=== PATIENT | male | born 1960 | race Caucasian/White ===

== ENCOUNTER 2018-03-05 21:46 | Inpatient (IN) | payer OTHER, MEDICAID ==
[2018-03-05 22:25] LABS: ADD MAN DIFF? NO
[2018-03-05 22:31] LABS: BASOPHILS % 0.9 % (0.0-2.0); EOSINOPHILS # 0.1 10^3/ul (0.0-0.5); HEMATOCRIT 24.8 % (42.0-52.0); HEMOGLOBIN 7.8 g/dl (14.0-18.0); LYMPHOCYTES # 1.5 10^3/ul (0.8-2.9); LYMPHOCYTES % 33.6 % (15.0-51.0); MEAN CORPUSCULAR HEMOGLOBIN 29.2 pg (29.0-33.0); MEAN CORPUSCULAR HGB CONC 31.5 g/dl (32.0-37.0); MEAN CORPUSCULAR VOLUME 92.9 fl (82.0-101.0); MEAN PLATELET VOLUME 10.1 fl (7.4-10.4); MONOCYTE # 0.5 10^3/ul (0.3-0.9); MONOCYTES % 11.4 % (0.0-11.0); NEUTROPHIL # 2.2 10^3/ul (1.6-7.5); NEUTROPHILS % 50.9 % (39.0-77.0); PLATELET COUNT 134 10^3/UL (140-415); RED BLOOD COUNT 2.67 10^6/ul (4.70-6.10); RED CELL DISTRIBUTION WIDTH 15.3 % (11.5-14.5)
[2018-03-05 22:31] LABS: WHITE BLOOD COUNT 4.4 10^3/ul (4.8-10.8)
[2018-03-05 22:48] LABS: ALANINE AMINOTRANSFERASE 26 IU/L (13-69); ALBUMIN 4.3 g/dl (3.3-4.9); ALBUMIN/GLOBULIN RATIO 1.65; ALKALINE PHOSPHATASE 168 IU/L (42-121); ANION GAP 13 (5-13); ASPARTATE AMINO TRANSFERASE 29 IU/L (15-46); BILIRUBIN,INDIRECT 0.2 mg/dl (0-1.1); BILIRUBIN,TOTAL 0.2 mg/dl (0.2-1.3); BLOOD UREA NITROGEN 77 mg/dl (7-20); CALCIUM 9.4 mg/dl (8.4-10.2); CARBON DIOXIDE 28 mmol/L (21-31); CHLORIDE 95 mmol/L (97-110); CREATININE 8.63 mg/dl (0.61-1.24); Estimated GFR 6 mL/min (>60); GLUCOSE 105 mg/dl (70-220); LIPASE 157 U/L (23-300); POTASSIUM 4.6 mmol/L (3.5-5.1); SODIUM 136 mmol/L (135-144); TOTAL PROTEIN 6.9 g/dl (6.1-8.1)
[2018-03-05 22:51] LABS: INR 0.93; PROTIME 12.5 Sec (11.9-14.9)
[2018-03-05 22:52] LABS: PARTIAL THROMBOPLASTIN TIME 39.5 Sec (23.0-35.0)
[2018-03-05] MEDS ORDERED: ACETAMINOPHEN 325 MG TAB PO (23:00)
[2018-03-05] MEDS ORDERED: DOCUSATE SODIUM 100 MG CAP PO (23:00)
[2018-03-05] MEDS ORDERED: NACL 0.9% 3 ML SYG IV (23:00)
[2018-03-05] MEDS ORDERED: BISACODYL (EC) 5 MG TAB PO (23:00)
[2018-03-05 23:25] LABS: C-REACTIVE PROTEIN 1.4 mg/dl (0.0-0.9)
[2018-03-06 00:25] LABS: ERYTHROCYTE SEDIMENTATION RATE 22 mm/Hr (0-20)
[2018-03-06] MEDS ORDERED: VANCOMYCIN IV PER PHARMACY XX (02:00)
[2018-03-06] MEDS: CEFTRIAXONE 1 GM/50 ML (PMX) 50 ML IVPB (02:25)
[2018-03-06] MEDS: VANCOMYCIN 1.5 GM in SOD CHLORIDE 0.9% 250 ML IVPB (03:41)
[2018-03-06 05:46] LABS: ADD MAN DIFF? NO
[2018-03-06 05:53] LABS: BASOPHILS % 0.3 % (0.0-2.0); EOSINOPHILS % 0.3 % (0.0-7.0); HEMATOCRIT 23.1 % (42.0-52.0); HEMOGLOBIN 7.4 g/dl (14.0-18.0); LYMPHOCYTES # 0.8 10^3/ul (0.8-2.9); LYMPHOCYTES % 21.7 % (15.0-51.0); MEAN CORPUSCULAR HEMOGLOBIN 29.1 pg (29.0-33.0); MEAN CORPUSCULAR VOLUME 90.9 fl (82.0-101.0); MEAN PLATELET VOLUME 10.4 fl (7.4-10.4); MONOCYTE # 0.1 10^3/ul (0.3-0.9); MONOCYTES % 1.9 % (0.0-11.0); NEUTROPHIL # 2.9 10^3/ul (1.6-7.5); NEUTROPHILS % 75.5 % (39.0-77.0); PLATELET COUNT 120 10^3/UL (140-415); RED BLOOD COUNT 2.54 10^6/ul (4.70-6.10); RED CELL DISTRIBUTION WIDTH 14.9 % (11.5-14.5)
[2018-03-06 05:53] LABS: WHITE BLOOD COUNT 3.8 10^3/ul (4.8-10.8)
[2018-03-06 06:21] LABS: ALANINE AMINOTRANSFERASE 21 IU/L (13-69); ALBUMIN 3.8 g/dl (3.3-4.9); ALBUMIN/GLOBULIN RATIO 1.52; ALKALINE PHOSPHATASE 165 IU/L (42-121); ANION GAP 16 (5-13); ASPARTATE AMINO TRANSFERASE 23 IU/L (15-46); BILIRUBIN,INDIRECT 0.1 mg/dl (0-1.1); BILIRUBIN,TOTAL 0.1 mg/dl (0.2-1.3); BLOOD UREA NITROGEN 77 mg/dl (7-20); CARBON DIOXIDE 21 mmol/L (21-31); CHLORIDE 99 mmol/L (97-110); CHOL/HDL RATIO 2.7 RATIO; CHOLESTEROL 123 mg/dl (100-200); CREATININE 8.92 mg/dl (0.61-1.24); Estimated GFR 6 mL/min (>60); GLUCOSE 184 mg/dl (70-220); HDL CHOLESTEROL 44 mg/dl (28-71); LDL CHOLESTEROL,CALCULATED 65 mg/dl; MAGNESIUM 2.2 mg/dl (1.7-2.5); PHOSPHORUS 3.6 mg/dl (2.5-4.9); POTASSIUM 5.3 mmol/L (3.5-5.1); SODIUM 136 mmol/L (135-144); TOTAL PROTEIN 6.3 g/dl (6.1-8.1); TRIGLYCERIDES 70 mg/dl (0-149)
[2018-03-06 06:24] LABS: IRON 42 ug/dl (35-150)
[2018-03-06 06:35] LABS: % IRON SATURATION 16 % SAT (22-52); TOTAL IRON BINDING CAPACITY 257 ug/dl (241-421)
[2018-03-06 06:44] LABS: THYROID STIMULATING HORMONE 0.873 MIU/L (0.465-4.680)
[2018-03-06] MEDS: LEVOTHYROXINE 50 MCG TAB PO (06:46)
[2018-03-06] MEDS ORDERED: GENTAMICIN IV PER PHARMACY XX (08:00)
[2018-03-06] MEDS: [UNRECOGNIZED DRUG - OTHER] XX ×2 (08:30→16:27)
[2018-03-06] MEDS: FOLIC ACID 1 MG TAB PO (09:00)
[2018-03-06] MEDS ORDERED: NON-FORMULARY/PATIENT OWN MED (Linaclotide (Linzess) 145 MCG) PO (09:00)
[2018-03-06] MEDS: AMLODIPINE 10 MG TAB PO (09:00)
[2018-03-06] MEDS: LISINOPRIL 20 MG TAB PO (09:00)
[2018-03-06] MEDS ORDERED: MIDAZOLAM 1 MG/ML 2 ML INJ (10:38)
[2018-03-06] MEDS: BUPIVACAINE 0.5% (SDV) 30 ML INJ (10:42)
[2018-03-06] MEDS: LIDOCAINE 1% (STERILE-PAK) 30 ML INJ (10:42)
[2018-03-06] MEDS: VANCOMYCIN 1 GM INJ (10:42)
[2018-03-06] MEDS ORDERED: GENTAMICIN 80 MG INJ (10:43)
[2018-03-06] MEDS ORDERED: VANCOMYCIN 1 GM INJ (10:43)
[2018-03-06] MEDS: SOD FERRIC GLUC COMPLX 125 MG in SOD CHLORIDE 0.9% 100 ML IVPB (16:32)
[2018-03-06 19:56] LABS: HEPATITIS B SURFACE ANTIGEN NEGATIVE (NEGATIVE)
[2018-03-06 20:17] LABS: IMMEDIATE SPIN CROSSMATCH 1 1
[2018-03-06] MEDS: traMADol 50 MG TAB PO (23:21)
[2018-03-06] MEDS: HEPARIN 1000 UNITS/ML 10 ML INJ CATHETER (23:45)
[2018-03-06] MEDS: GENTAMICIN 160 MG in SOD CHLORIDE 0.9% 100 ML IVPB (23:49)
[2018-03-06] MEDS: DOCUSATE SODIUM 100 MG CAP PO (23:50)
[2018-03-07] MEDS: [UNRECOGNIZED DRUG - OTHER] XX ×2 (00:30→07:38)
[2018-03-07] MEDS: CEFTRIAXONE 1 GM/50 ML (PMX) 50 ML IVPB (01:47)
[2018-03-07] MEDS: LEVOTHYROXINE 50 MCG TAB PO (06:02)
[2018-03-07] MEDS ORDERED: GENTAMICIN 100 MG/50 ML NS IVPB (07:00)
[2018-03-07] MEDS ORDERED: GENTAMICIN 80 MG/NS (PMX) 50 ML IVPB (07:00)
[2018-03-07] MEDS: AMLODIPINE 10 MG TAB PO (09:00)
[2018-03-07] MEDS: LISINOPRIL 20 MG TAB PO (09:00)
[2018-03-07] MEDS: DOCUSATE SODIUM 100 MG CAP PO ×2 (09:19→20:38)
[2018-03-07] MEDS: FOLIC ACID 1 MG TAB PO (09:19)
[2018-03-07] MEDS: SOD FERRIC GLUC COMPLX 125 MG in SOD CHLORIDE 0.9% 100 ML IVPB (18:58)
[2018-03-08] MEDS: CEFTRIAXONE 1 GM/50 ML (PMX) 50 ML IVPB (02:15)
[2018-03-08 05:55] LABS: ADD MAN DIFF? NO
[2018-03-08 05:59] LABS: WHITE BLOOD COUNT 4.7 10^3/ul (4.8-10.8)
[2018-03-08 05:59] LABS: BASOPHILS % 0.8 % (0.0-2.0); EOSINOPHILS # 0.1 10^3/ul (0.0-0.5); EOSINOPHILS % 2.3 % (0.0-7.0); HEMATOCRIT 29.6 % (42.0-52.0); HEMOGLOBIN 9.4 g/dl (14.0-18.0); LYMPHOCYTES # 1.8 10^3/ul (0.8-2.9); LYMPHOCYTES % 38.7 % (15.0-51.0); MEAN CORPUSCULAR HEMOGLOBIN 29.5 pg (29.0-33.0); MEAN CORPUSCULAR HGB CONC 31.8 g/dl (32.0-37.0); MEAN CORPUSCULAR VOLUME 92.8 fl (82.0-101.0); MEAN PLATELET VOLUME 10.1 fl (7.4-10.4); MONOCYTE # 0.5 10^3/ul (0.3-0.9); MONOCYTES % 10.4 % (0.0-11.0); NEUTROPHIL # 2.3 10^3/ul (1.6-7.5); NEUTROPHILS % 47.6 % (39.0-77.0); PLATELET COUNT 125 10^3/UL (140-415); RED BLOOD COUNT 3.19 10^6/ul (4.70-6.10); RED CELL DISTRIBUTION WIDTH 15.2 % (11.5-14.5)
[2018-03-08] MEDS: LEVOTHYROXINE 50 MCG TAB PO (06:03)
[2018-03-08 06:33] LABS: VANCOMYCIN,RANDOM 14.8 ug/ml
[2018-03-08 06:33] LABS: ANION GAP 15 (5-13); BLOOD UREA NITROGEN 78 mg/dl (7-20); CALCIUM 8.4 mg/dl (8.4-10.2); CARBON DIOXIDE 23 mmol/L (21-31); CHLORIDE 99 mmol/L (97-110); Estimated GFR 6 mL/min (>60); GLUCOSE 92 mg/dl (70-220); POTASSIUM 5.4 mmol/L (3.5-5.1); SODIUM 137 mmol/L (135-144)
[2018-03-08] MEDS: AMLODIPINE 10 MG TAB PO (09:00)
[2018-03-08] MEDS: LISINOPRIL 20 MG TAB PO (09:00)
[2018-03-08] MEDS: FOLIC ACID 1 MG TAB PO (09:16)
[2018-03-08] MEDS: DOCUSATE SODIUM 100 MG CAP PO (09:16)
[2018-03-08] MEDS: LINZESS 145 MCG CAP PO (09:17)
[2018-03-08] MEDS: HEPARIN 1000 UNITS/ML 10 ML INJ CATHETER (14:31)
[2018-03-08] MEDS ORDERED: VANCOMYCIN 1 GM 250 ML IVPB (22:00)
== END 2018-03-08 17:22 | disposition home health service (06) | DRG 856 ==
LOC: PP2 22:37 → E/R 21:46
PROC: 0JB60ZZ Excision of Chest Subcutaneous Tissue and Fascia, Open Approach (ICD-10-PCS; principal; 2018-03-06 09:30)
PROC: 5A1D70Z Performance of Urinary Filtration, Intermittent, Less than 6 Hours Per Day (ICD-10-PCS; 2018-03-06 10:29)
PROC: 5A1D70Z Performance of Urinary Filtration, Intermittent, Less than 6 Hours Per Day (ICD-10-PCS; 2018-03-06 10:29)
PROC: 30233N1 Transfusion of Nonautologous Red Blood Cells into Peripheral Vein, Percutaneous Approach (ICD-10-PCS; 2018-03-06 10:29)
DX: T81.41XA Infection following a procedure, superficial incisional surgical site, initial encounter (principal); N18.6 End stage renal disease; T82.7XXA Infection and inflammatory reaction due to other cardiac and vascular devices, implants and grafts, initial encounter; I12.0 Hypertensive chronic kidney disease with stage 5 chronic kidney disease or end stage renal disease; D61.818 Other pancytopenia; J94.8 Other specified pleural conditions; E87.70 Fluid overload, unspecified; E78.5 Hyperlipidemia, unspecified; E03.9 Hypothyroidism, unspecified; D63.1 Anemia in chronic kidney disease; D50.9 Iron deficiency anemia, unspecified; K59.09 Other constipation; Y83.2 Surgical operation with anastomosis, bypass or graft as the cause of abnormal reaction of the patient, or of later complication, without mention of misadventure at the time of the procedure; Y92.019 Unspecified place in single-family (private) house as the place of occurrence of the external cause; Z99.2 Dependence on renal dialysis
CPT/HCPCS: 36415; 36430; 71045; 76604; 80048; 80053; 80061; 80202; 82728; 82962; 83036; 83540; 83690; 83735; 84100; 84443; 85025; 85610; 85651; 85730; 86140; 86850; 86900; 86901; 86920; 87040; 87070; 87075; 87081; 87340; 90935; 99285-25